=== PATIENT | female | born 1960 | race Caucasian/White ===

== ENCOUNTER 2017-08-15 03:39 | Emergency (ER) | payer OTHER ==
[2017-08-15] MEDS: predniSONE 20 MG TAB PO (05:30)
[2017-08-15] MEDS: IPRATROPIUM 0.5MG/ALBUTEROL 2.5MG INH SOL UD 3ML (DUONEB)(J7620) NEB (05:35)
[2017-08-15] MEDS: KETOROLAC 30 MG/ML VIAL (J1885) IM (06:47)
[2017-08-15] MEDS: ONDANSETRON 4 MG TAB (S0181) PO (06:47)
== END 2017-08-15 06:52 | disposition home or self-care (01) ==
LOC: M ED 03:39
DX: J06.9 Acute upper respiratory infection, unspecified (principal); J44.9 Chronic obstructive pulmonary disease, unspecified; F17.210 Nicotine dependence, cigarettes, uncomplicated
CPT/HCPCS: J1885